=== PATIENT | female | born 1975 | race Caucasian/White ===

== ENCOUNTER → 2016-12-21 | Outpatient (CLI) | payer OTHER ==
[~2016-12-21] MED LIST: DULO20CA; DULO60CA6 PO; HYDR1TAB66 PO; LISI10TA PO; MNTL10T PO; MTF500T PO; MULT-974 PO; NF-ESOM40C PO; NF-MEXI150 PO; OMEP-10 PO; SERT50TA9 PO
--- NOTE | 2016-12-24 13:12 | ECHOCARDIOGRAPHY REPORT ---
DATE OF SERVICE: 12/21/2016 REFERRING PHYSICIAN: Dr. Linda Miguel and Dr. Obed Man. MEASUREMENT: LVID end diastolic 4.6. IVS thickness 1.1. LVPW thickness 1.1. Left atrial diameter 3.0. Ejection fraction 50%. FINDINGS: 1. Technical quality is good. 2. The left ventricle is normal in size. Normal contractility. No segmental wall motion abnormalities, systolic function appeared to be normal, estimated ejection fraction 50%. 3. The left atrium is normal in size. No clot or thrombus were seen within the left atrium. 4. The right atrium and right ventricle are normal in size. No clot or thrombus were seen within the right side. 5. Mitral valve is normal in morphology with mild mitral regurgitation noted by color Doppler flow. No mitral valve prolapse. No mitral valve stenosis. 6. Aortic valve is trileaflet with normal opening and closing pattern. No significant aortic stenosis or regurgitation was seen. 7. Tricuspid valve is normal in morphology with mild tricuspid regurgitation noted by color Doppler flow. Doppler across the tricuspid valve estimated pulmonary artery pressure of 12 plus right atrial pressure. 8. Pulmonic valve is functioning normally. 9. No pericardial effusion. CONCLUSION: 1. Normal left ventricular size and systolic function, estimated ejection fraction 60%. 2. Mild mitral and tricuspid regurgitation. 3. Estimated pulmonary artery pressure of 20 mmHg. 4. Improvement compared to the study of 10/2014. Job ID: [id number] DocumentID: [id number] Dictated Date: 12/24/2016 08:12:33 Director Of Program Management Date: 12/24/2016 10:13:04 Dictated By: MERLINE BOURGEOIS MD
== END ==
LOC: CARD 08:11
PROVIDERS: ATTEND Physician Assistant
DX: R55 Syncope and collapse (principal); R00.8 Other abnormalities of heart beat; R00.2 Palpitations; F17.200 Nicotine dependence, unspecified, uncomplicated
CPT/HCPCS: 93306

== ENCOUNTER → 2021-08-29 | Outpatient (CLI) | payer SELFPAY ==
--- NOTE | 2021-08-29 16:06 | Diagnostic Imaging Report ---
PROCEDURE: CT abdomen without contrast. TECHNIQUE: Multiple contiguous axial images were obtained through the abdomen without the use of intravenous contrast. Auto Exposure Controls were utilized during the CT exam to meet ALARA standards for radiation dose reduction. INDICATION: Generalized abdominal pain. COMPARISON: 07/26/2013. FINDINGS: The lung bases are clear. The liver, gallbladder and bile ducts appear normal. Pancreas and spleen are normal. The adrenal glands are not enlarged. The kidneys show no evidence of obstruction or calculi. Renal outlines are smooth. No perinephric fluid. Oral contrast is present in the stomach and small bowel extending to the colon. No evidence of distended bowel loops. The colon shows normal stool and gas pattern. No intra-abdominal adenopathy of pathologic size. Aorta is atherosclerotic without evidence of aneurysm. No free air or free fluid. IMPRESSION: No acute abnormalities noted within the abdomen. Dictated by: Dictated on workstation # [id number]
== END ==
LOC: RAD 13:15
PROVIDERS: ATTEND Nurse Practitioner Family
DX: K21.9 Gastro-esophageal reflux disease without esophagitis (principal); R10.84 Generalized abdominal pain
CPT/HCPCS: 74150